=== PATIENT | female | born 1955 | race Two or more races ===

== ENCOUNTER 2021-10-05 08:04 | Day surgery (SDC) | payer OTHER ==
[~2021-10-05 08:04] MED LIST: ALENDRONATE SOD70 MG PO; COZAAR50 MG PO; D3 + K2 DOTS 11 EACH PO; LEVO-T75 MCG PO; NAPR500T14 PO; ZANAFLEX4 MG PO
[2021-10-05] MEDS ORDERED: MACROBID 100 M100 MG PO (13:38)
[2021-10-05] MEDS ORDERED: ULTRACET PO (13:39)
== END 2021-10-05 19:30 | disposition home or self-care (01) ==
LOC: CIR.AMB 08:04
PROVIDERS: ATTEND Obstetrics & Gynecology Gynecology
DX: N81.10 Cystocele, unspecified (principal); N39.3 Stress incontinence (female) (male)